=== PATIENT | male | born 1990 | race Caucasian/White ===

== ENCOUNTER 2018-06-12 21:09 | Emergency (ER) | payer BC, OTHER ==
[~2018-06-12] VITALS: Ht 175.3 cm; Wt 86.5 kg
[2018-06-12 21:13] VITALS: TEMP 37; Ht 175.3 cm; Wt 86.5 kg
[2018-06-12] MEDS ORDERED: SODIUM CHLORIDE 0.9% 1000ML 1,000 ML IV STA (21:28)
[2018-06-12] MEDS ORDERED: MoRPHine SULFATE 4 MG/ML 1 ML CARP\\VIAL IV STA (21:28)
[2018-06-12] MEDS ORDERED: ONDANSETRON INJ 2 MG/ML 2 ML VIAL IV STA (21:28)
[2018-06-12] MEDS ORDERED: OPTIRAY 320 IV PRN (21:45)
[2018-06-12 21:59] LABS: BASO % 0.6 %; BASO ABS # 0.08 K/uL (0-0.2); EOS % 2.3 %; EOS ABS # 0.28 K/uL (0-0.5); HEMATOCRIT 46.6 % (42-52); HEMOGLOBIN 16.3 g/dL (14.0-18.0); IG# 0.05 K/uL (0.00-0.02); LYMPH % 23.7 %; LYMPH ABS # 2.92 K/uL (1.2-3.4); MEAN CELL VOLUME 86.1 fL (80-100); MEAN CORPUSCULAR HEMOGLOBIN 30.1 pg (25-34); MEAN PLATELET VOLUME 10.2 fL (7.4-10.4); MONO % 10.5 %; MONO ABS # 1.29 K/uL (0.11-0.59); NEUT % 62.5 %; PLATELET COUNT 255 K/uL (130-400); RED CELL DISTRIBUTION WIDTH CV 12.4 % (11.5-14.5); WHITE BLOOD COUNT 12.32 K/uL (4.8-10.8)
[2018-06-12 22:29] LABS: ALBUMIN 4.6 gm/dl (3.4-5.0); CALCIUM 9.5 mg/dl (8.5-10.1); CREATININE 1.03 mg/dl (0.60-1.40); POTASSIUM 3.6 mmol/L (3.5-5.1); TOTAL PROTEIN 7.9 gm/dl (6.4-8.2)
[2018-06-12] MEDS ORDERED: RANITAB33 PO (22:32)
[2018-06-12] MEDS ORDERED: ONDA4TAB46 PO (22:32)
[2018-06-12] MEDS ORDERED: PRLSR20 PO (22:32)
--- NOTE | 2018-06-12 23:13 | DIAGNOSTIC IMAGING REPORT ---
CT OF THE ABDOMEN AND PELVIS WITH CONTRAST CLINICAL HISTORY: Right lower quadrant pain. Evaluate for acute appendicitis. COMPARISON STUDY: None. TECHNIQUE: Following IV administration of 115 mL of Optiray-320, axial images of the abdomen and pelvis were obtained from the lung bases to the proximal femurs. Images were reviewed in the axial, sagittal, and coronal planes. IV contrast was administered without complication. A dose lowering technique was utilized adhering to the principles of ALARA. CT DOSE: 413.36 mGy.cm FINDINGS: Lung bases are clear. No pneumatosis, free air or portal venous gas is present. The liver, spleen, adrenal glands, kidneys and pancreas are normal. There is no biliary or pancreatic ductal dilatation. There is no peripancreatic or pericholecystic infiltration. Caliber and wall thickness of small and large bowel are normal. The appendix is normal. There is no ascites or lymphadenopathy. Mild bladder wall thickening is noted. Both nephrograms are symmetric. There are no suspicious osseous lesions. IMPRESSION: 1. Normal appendix. No bowel obstruction. 2. Mild bladder wall thickening which is likely due to underdistention however could be correlated with urinalysis to exclude cystitis. Electronically signed by: Vijay Ray M.D. 06/12/2018 11:11 PM Dictated Date/Time: 06/12/2018 11:04 PM
[2018-06-12] MEDS ORDERED: ONDANSETRON HOME PACK 4MG OD TAB PO ONE (23:30)
[2018-06-13 00:02] VITALS: BP 122/70; PULSE 62; O2SAT 98
--- NOTE | 2018-06-13 00:42 | EMERGENCY ROOM VISIT NOTE ---
History Report prepared by Say: Félix Hannah Under the Supervision of: Dr. Kevin Wells M.D. First contact with patient: 21:18 Chief Complaint: ABDOMINAL PAIN Stated Complaint: ABD PAIN History of Present Illness The patient is a 28 year old male who presents to the Emergency Room with complaints of sharp and constant abdominal pain beginning 3 or 4 days ago. He states that there is no radiation of pain to the back. He notes vomiting and sweating, as well as an episode of diarrhea after drinking grape juice. He did not have a recorded fever. He denies hematuria. He reports that the pain was improved in the hot tub. He also states that he took Zofran at 15:00 today, which helped with the nausea and slightly with the pain. Source of History: patient Onset: 3 or 4 days ago Position: abdomen Quality: sharp Timing: constant Modifying Factors (Relieving): other (Zofran, hot tub) Associated Symptoms: + vomiting, + diarrhea, No back pain, No urinary symptoms Review of Systems See HPI for pertinent positives & negatives. A total of 10 systems reviewed and were otherwise negative. Past Medical & Surgical Surgical Problems: (1) History of knee surgery Family History Patient reports no known family medical history. Social History Smoking Status: Never Smoker Marital Status: single Occupation Status: employed Current/Historical Medications Scheduled Omeprazole (Prilosec), 20 MG PO DAILY Scheduled PRN Ondansetron Hcl (Zofran), 4 MG PO PRN UD PRN for Nausea Ranitidine Hcl (Zantac), 150 MG PO DAILY PRN for ACID REFLUX Allergies Coded Allergies: BEE STING (Verified Allergy, Severe, SWOLLEN, 01/12/14) Physical Exam Vital Signs Date Time Temp Pulse Resp B/P (MAP) Pulse Ox O2 Delivery O2 Flow Rate FiO2 06/13/18 00:02 62 18 122/70 98 Room Air 06/12/18 23:17 58 18 127/74 98 Room Air 06/12/18 22:45 80 17 99 Room Air 06/12/18 21:13 37.0 80 18 154/79 98 Room Air Physical Exam Constitutional: Vital signs reviewed. Eyes: Pupils are equal round reactive to light. Conjunctiva are noninjected. ENT: Pharynx is clear without erythema or exudate. Mucous membranes are moist. Neck supple without meningeal signs. Respiratory: Clear to auscultation bilaterally. Breath sounds are equal bilaterally. Cardiovascular: Regular rate and rhythm. No rubs or gallops. GI: Soft, nondistended. Right lower quadrant tenderness. Bowel sounds are present. No guarding. Musculoskeletal: No peripheral edema. No lower extremity tenderness. No CVA tenderness. Integumentary: No cyanosis. Neurological: The patient is awake and alert. No focal deficits. Psychiatric: Normal affect. Medical Decision & Procedures ER Provider Diagnostic Interpretation: Radiology results as stated below per my review and the radiologist's interpretation: Patient: MARIO HARDY Address1: [address] [place] [address] Rec: [id number] Address2: Acct ID: [id number] [facility] Zip: [place] [address] Date: 1990 Sex: M Room/Bed: Ref Phy: Codi Walsh M.D. SC: JAVED Att Phy: Report #: [id number] Kay Phy: Codi Walsh M.D. Test: APIV Admit Phy: Locum Tenens: ALINE Interpreting Phy: Vijay Ray MD Diagnosis: ABD PAIN Ordering Phy: Kevin Wells MD Service Date: 06/12/18 Admit Date: 06/12/18 MNE: [id number] CONF: DICTATED BY: Vijay Ray MD]] CC: Kevin Wells M.D. Galvin, Sharon H., M.D. Endcc: [~ rep ct add3]] CT OF THE ABDOMEN AND PELVIS WITH CONTRAST CLINICAL HISTORY: Right lower quadrant pain. Evaluate for acute appendicitis. COMPARISON STUDY: None. TECHNIQUE: Following IV administration of 115 mL of Optiray-320, axial images of the abdomen and pelvis were obtained from the lung bases to the proximal femurs. Images were reviewed in the axial, sagittal, and coronal planes. IV contrast was administered without complication. A dose lowering technique was utilized adhering to the principles of ALARA. CT DOSE: 413.36 mGy.cm FINDINGS: Lung bases are clear. No pneumatosis, free air or portal venous gas is present. The liver, spleen, adrenal glands, kidneys and pancreas are normal. There is no biliary or pancreatic ductal dilatation. There is no peripancreatic or pericholecystic infiltration. Caliber and wall thickness of small and large bowel are normal. The appendix is normal. There is no ascites or lymphadenopathy. Mild bladder wall thickening is noted. Both nephrograms are symmetric. There are no suspicious osseous lesions. IMPRESSION: 1. Normal appendix. No bowel obstruction. 2. Mild bladder wall thickening which is likely due to underdistention however could be correlated with urinalysis to exclude cystitis. Electronically signed by: Vijay Ray M.D. 06/12/2018 11:11 PM Dictated Date/Time: 06/12/2018 11:04 PM Laboratory Results 06/12/18 21:47 Red Blood Count 5.41, Mean Corpuscular Volume 86.1, Mean Corpuscular Hemoglobin 30.1, Mean Corpuscular Hemoglobin Concent 35.0, Mean Platelet Volume 10.2, Neutrophils (%) (Auto) 62.5, Lymphocytes (%) (Auto) 23.7, Monocytes (%) (Auto) 10.5, Eosinophils (%) (Auto) 2.3, Basophils (%) (Auto) 0.6, Neutrophils # (Auto ) 7.70, Lymphocytes # (Auto) 2.92, Monocytes # (Auto) 1.29, Eosinophils # (Auto ) 0.28, Basophils # (Auto) 0.08 06/12/18 21:47 Test 06/12/18 21:47 06/12/18 22:39 White Blood Count 12.32 K/uL (4.8-10.8) Red Blood Count 5.41 M/uL (4.7-6.1) Hemoglobin 16.3 g/dL (14.0-18.0) Hematocrit 46.6 % (42-52) Mean Corpuscular Volume 86.1 fL (80-100) Mean Corpuscular Hemoglobin 30.1 pg (25-34) Mean Corpuscular Hemoglobin Concent 35.0 g/dl (32-36) Platelet Count 255 K/uL (130-400) Mean Platelet Volume 10.2 fL (7.4-10.4) Neutrophils (%) (Auto) 62.5 % Lymphocytes (%) (Auto) 23.7 % Monocytes (%) (Auto) 10.5 % Eosinophils (%) (Auto) 2.3 % Basophils (%) (Auto) 0.6 % Neutrophils # (Auto) 7.70 K/uL (1.4-6.5) Lymphocytes # (Auto) 2.92 K/uL (1.2-3.4) Monocytes # (Auto) 1.29 K/uL (0.11-0.59) Eosinophils # (Auto) 0.28 K/uL (0-0.5) Basophils # (Auto) 0.08 K/uL (0-0.2) RDW Standard Deviation 39.0 fL (36.4-46.3) RDW Coefficient of Variation 12.4 % (11.5-14.5) Immature Granulocyte % (Auto) 0.4 % Immature Granulocyte # (Auto) 0.05 K/uL (0.00-0.02) Anion Gap 7.0 mmol/L (3-11) Est Creatinine Clear Calc Drug Dose 118.4 ml/min Estimated GFR () 115.7 Estimated GFR (Non- 99.8 BUN/Creatinine Ratio 16.6 (10-20) Calcium Level 9.5 mg/dl (8.5-10.1) Total Bilirubin 1.3 mg/dl (0.2-1) Direct Bilirubin 0.4 mg/dl (0-0.2) Aspartate Amino Transf (AST/SGOT) 20 U/L (15-37) Alanine Aminotransferase (ALT/SGPT) 37 U/L (12-78) Alkaline Phosphatase 67 U/L (45-117) Total Protein 7.9 gm/dl (6.4-8.2) Albumin 4.6 gm/dl (3.4-5.0) Lipase 131 U/L (73-393) Urine Color ORANGE Urine Appearance CLEAR (CLEAR) Urine pH 5.5 (4.5-7.5) Urine Specific Andrews 1.028 (1.000-1.030) Urine Protein 1+ (NEG) Urine Glucose (UA) NEG (NEG) Urine Ketones NEG (NEG) Urine Occult Blood 2+ (NEG) Urine Nitrite NEG (NEG) Urine Bilirubin NEG (NEG) Urine Urobilinogen NEG (NEG) Urine Leukocyte Esterase NEG (NEG) Urine WBC (Auto) 1-5 /hpf (0-5) Urine RBC (Auto) 0-4 /hpf (0-4) Urine Hyaline Casts (Auto) 5-10 /lpf (0-5) Urine Epithelial Cells (Auto) 5-10 /lpf (0-5) Urine Bacteria (Auto) NEG (NEG) Medications Administered Medications (Trade) Dose Ordered Sig/Tremaine Route Start Time Stop Time Status Last Admin Dose Admin Morphine Sulfate (MoRPHine SULFATE INJ) 4 mg ONE STAT IV 06/12/18 21:28 06/12/18 21:30 DC 06/12/18 21:42 4 MG Ondansetron HCl (Zofran Inj) 4 mg NOW STAT IV 06/12/18 21:28 06/12/18 21:30 DC 06/12/18 21:43 4 MG Sodium Chloride 1,000 ml @ 999 mls/hr Q1H1M STAT IV 06/12/18 21:28 06/12/18 22:28 DC 06/12/18 21:43 999 MLS/HR Ondansetron HCl (ZOFRAN ODT 4MG Home Pack) 1 homepack UD ONCE PO 06/12/18 23:30 06/12/18 23:31 DC 06/12/18 23:41 1 HOMEPACK ED Course 0: The patient was evaluated in room B5. A complete history and physical exam was performed. 8: Ordered Sodium Chloride 1000 ml @ 999 mls/hr IV, Zofran 4 mg IV, Morphine Sulfate 4 mg IV 2324: I discussed results with the patient and his mother. He verbalized agreement of the treatment plan. He was discharged home. 0: Ordered Ondansetron HCl 1 homepack PO. Medical Decision This is a 28-year-old male presents with right-sided abdominal pain. Differential diagnosis includes acute appendicitis, abscess, perforation, inflammatory bowel disease, irritable bowel syndrome, kidney stone. I did perform a limited focused review of portions of the patient's old chart on the electronic medical record. The patient has had no recent pertinent visits to this hospital. I did evaluate the patient as noted above. IV access was established. I did treat the patient with IV morphine and Zofran. He was also given normal saline IV. I did order and personally review the patient's urine analysis as described above. He had some hematuria without signs of infection. I did order and review the patient's blood work as noted in the electronic medical record. His white blood cell count is slightly elevated. I did order a CT of the abdomen and pelvis. I did review the images myself as well as the radiology report as described above. His appendix was visualized and normal. There is no acute abnormality in the abdomen or pelvis. I did reassess patient. He is feeling better at this time. I did discuss the test results with the patient and his mother. I did recommend close follow-up with his physician given we do not have a clear etiology for his pain. He was discharged with a Zofran home pack. Medication Reconcilliation Current Medication List: was personally reviewed by me Blood Pressure Screening Patient's blood pressure: Elevated blood pressure Blood pressure disposition: Referred to PCP Impression Primary Impression: Right sided abdominal pain Scribe Attestation The scribe's documentation has been prepared under my direct and personally reviewed by me in its entirety. I confirm that the note above accurately reflects all work, treatment, procedures, and medical decision making performed by me. Departure Information Dispostion Home / Self-Care Referrals No Doctor, Assigned (PCP) Forms HOME CARE DOCUMENTATION FORM, IMPORTANT VISIT INFORMATION Patient Instructions My [facility] Additional Instructions You have been examined and treated today on an emergency basis only. This is not a substitute for, or an effort to provide, complete comprehensive medical care. It is impossible to recognize and treat all injuries or illnesses in a single emergency department visit. It is therefore important that you follow up closely with your physician. Call as soon as possible for an appointment. Return for worsening symptoms or if you develop fever or any other concerning symptoms.
== END 2018-06-13 | disposition home or self-care (01) ==
LOC: C.EDB 21:11
DX: R11.2 Nausea with vomiting, unspecified (principal); R03.0 Elevated blood-pressure reading, without diagnosis of hypertension; R61 Generalized hyperhidrosis; R19.7 Diarrhea, unspecified; Z91.030 Bee allergy status

== ENCOUNTER 2018-06-24 22:33 | Emergency (ER) | payer OTHER ==
[~2018-06-24 22:33] MED LIST: ONDA4TAB46 PO; PRLSR20 PO; RANITAB33 PO
[2018-06-24 22:36] VITALS: TEMP 36.7; Ht 175.3 cm
[2018-06-24] MEDS ORDERED: KETOROLAC TROMETHAMINE 30 MG/ML VIAL IV STA (22:54)
[2018-06-24] MEDS ORDERED: ONDANSETRON INJ 2 MG/ML 2 ML VIAL IV STA (22:54)
[2018-06-24] MEDS ORDERED: SODIUM CHLORIDE 0.9% 1000ML 2,000 ML IV STA (22:54)
[2018-06-24] MEDS ORDERED: DICYCLOMINE HCL 10 MG/ML 2 ML AMP IM ONE (23:00)
[2018-06-24 23:12] LABS: BASO % 0.2 %; BASO ABS # 0.04 K/uL (0-0.2); EOS % 0.2 %; EOS ABS # 0.04 K/uL (0-0.5); HEMATOCRIT 48.6 % (42-52); HEMOGLOBIN 17.2 g/dL (14.0-18.0); LYMPH % 9.1 %; LYMPH ABS # 1.72 K/uL (1.2-3.4); MEAN CELL VOLUME 85.9 fL (80-100); MEAN CORPUSCULAR HEMOGLOBIN 30.4 pg (25-34); MEAN CORPUSCULAR HGB CONC 35.4 g/dl (32-36); MEAN PLATELET VOLUME 10.1 fL (7.4-10.4); MONO % 6.5 %; MONO ABS # 1.23 K/uL (0.11-0.59); NEUT % 83.5 %; PLATELET COUNT 293 K/uL (130-400); RED CELL DISTRIBUTION WIDTH CV 12.5 % (11.5-14.5); WHITE BLOOD COUNT 18.83 K/uL (4.8-10.8)
[2018-06-24 23:33] LABS: ALBUMIN 5.1 gm/dl (3.4-5.0); ALKALINE PHOSPHATASE 85 U/L (45-117); ALT/SGPT 40 U/L (12-78); AST/SGOT 32 U/L (15-37); BLOOD UREA NITROGEN 21 mg/dl (7-18); CALCIUM 9.5 mg/dl (8.5-10.1); CARBON DIOXIDE 24 mmol/L (21-32); CREATININE 1.28 mg/dl (0.60-1.40); GLUCOSE 112 mg/dl (70-99); LIPASE 76 U/L (73-393); POTASSIUM 4.1 mmol/L (3.5-5.1); SODIUM 136 mmol/L (136-145); TOTAL PROTEIN 8.6 gm/dl (6.4-8.2)
[2018-06-25] MEDS ORDERED: LIDOCAINE HCL 2% VISC SOLN 20 ML UDC PO STA (00:03)
[2018-06-25] MEDS ORDERED: ALUMINUM/MAGNESIUM SUSP 30 ML UDC PO STA (00:03)
[2018-06-25] MEDS ORDERED: PANTOprazole SOD 40 MG TAB PO STA (01:26)
[2018-06-25] MEDS ORDERED: SUCRALFATE 1 GM/10 ML UDC PO STA (01:26)
[2018-06-25 01:37] VITALS: BP 123/75
[2018-06-25 01:51] VITALS: PULSE 54; O2SAT 99
[2018-06-25] MEDS ORDERED: PANT40TA PO (01:53)
--- NOTE | 2018-06-25 01:53 | EMERGENCY ROOM VISIT NOTE ---
History First contact with patient: 22:45 Chief Complaint: ABDOMINAL PAIN Stated Complaint: BAD STOMACH PAIN Nursing Triage Summary: pt presents with severe abdominal pain, nausea, vomiting. States this is the third episode recently. History of Present Illness The patient is a 28 year old male who presents to the Emergency Room with complaints of epigastric pain with nausea and vomiting for the past few hours. Patient states this is his third episode within this past month. He describes the pain as discomfort, 6 out of 10 to the epigastric region. Patient denies chest pain, dyspnea, fever, chills, diarrhea, back pain, hematemesis, black stool. Patient had a CT scan last week which was unremarkable. Review of Systems An 10 system review of systems was completed with positives and pertinent negatives listed in the HPI. Past Medical/Surgical History Surgical Problems: (1) History of knee surgery Family History Patient reports no known family medical history. Social History Smoking Status: Never Smoker Marital Status: single Occupation Status: employed Current/Historical Medications No Active Prescriptions or Reported Meds Physical Exam Vital Signs Date Time Temp Pulse Resp B/P (MAP) Pulse Ox O2 Delivery O2 Flow Rate FiO2 06/25/18 00:58 52 06/25/18 00:46 54 16 124/79 98 Room Air 06/24/18 23:33 70 17 99 Room Air 06/24/18 23:27 73 06/24/18 23:23 124/74 06/24/18 22:36 36.7 86 18 123/81 97 Room Air Physical Exam VITALS: Vitals are noted on the nurse's note and reviewed by myself. Vital signs stable. GENERAL: White male vomiting, in no acute distress, nondiaphoretic, well- developed well-nourished. SKIN: The skin was without rashes, erythema, edema, or bruising. There is no tenting of the skin. Capillary reflex less than 2 seconds. HEAD: Normocephalic atraumatic. EARS: External auditory canals clear, tympanic membranes pearly croft without erythema or effusion bilaterally. EYES: Pupils equal round and reactive to light and accommodation. Conjunctivae without injection, sclerae without icterus. Extraocular movements intact. NOSE: Patent, turbinates without inflammation or discharge. MOUTH: Mucous membranes moist. Pharynx without erythema or exudate. Uvula midline. Airway patent. Tongue does not deviate. NECK: Supple without nuchal rigidity. No lymphadenopathy. No thyromegaly. Cervical spine is nontender. No JVD. HEART: Regular rate and rhythm without murmurs gallops or rubs. LUNGS: Clear to auscultation bilaterally without wheezes, rales or rhonchi. No retractions or accessory muscle use. ABDOMEN: Positive bowel sounds x 4. Normal tympanic percussion. Soft, epigastric region tender to palpation, without masses or organomegaly. Ceja sign negative. No guarding or rebound tenderness. No CVA tenderness MUSCULOSKELETAL: No muscle atrophy, erythema, or edema noted. NEURO: Patient was alert and oriented to person place and time. Normal sensation to light and sharp touch. No focal neurological deficits. Medical Decision & Procedures Laboratory Results 06/24/18 23:00 Red Blood Count 5.66, Mean Corpuscular Volume 85.9, Mean Corpuscular Hemoglobin 30.4, Mean Corpuscular Hemoglobin Concent 35.4, Mean Platelet Volume 10.1, Neutrophils (%) (Auto) 83.5, Lymphocytes (%) (Auto) 9.1, Monocytes (%) (Auto) 6.5, Eosinophils (%) (Auto) 0.2, Basophils (%) (Auto) 0.2, Neutrophils # (Auto) 15.70, Lymphocytes # (Auto) 1.72, Monocytes # (Auto) 1.23, Eosinophils # (Auto) 0.04, Basophils # (Auto) 0.04 06/24/18 23:00 Test 06/24/18 23:00 White Blood Count 18.83 K/uL (4.8-10.8) Red Blood Count 5.66 M/uL (4.7-6.1) Hemoglobin 17.2 g/dL (14.0-18.0) Hematocrit 48.6 % (42-52) Mean Corpuscular Volume 85.9 fL (80-100) Mean Corpuscular Hemoglobin 30.4 pg (25-34) Mean Corpuscular Hemoglobin Concent 35.4 g/dl (32-36) Platelet Count 293 K/uL (130-400) Mean Platelet Volume 10.1 fL (7.4-10.4) Neutrophils (%) (Auto) 83.5 % Lymphocytes (%) (Auto) 9.1 % Monocytes (%) (Auto) 6.5 % Eosinophils (%) (Auto) 0.2 % Basophils (%) (Auto) 0.2 % Neutrophils # (Auto) 15.70 K/uL (1.4-6.5) Lymphocytes # (Auto) 1.72 K/uL (1.2-3.4) Monocytes # (Auto) 1.23 K/uL (0.11-0.59) Eosinophils # (Auto) 0.04 K/uL (0-0.5) Basophils # (Auto) 0.04 K/uL (0-0.2) RDW Standard Deviation 39.0 fL (36.4-46.3) RDW Coefficient of Variation 12.5 % (11.5-14.5) Immature Granulocyte % (Auto) 0.5 % Immature Granulocyte # (Auto) 0.10 K/uL (0.00-0.02) Anion Gap 11.0 mmol/L (3-11) Estimated GFR () 88.9 Estimated GFR (Non- 76.7 BUN/Creatinine Ratio 16.4 (10-20) Calcium Level 9.5 mg/dl (8.5-10.1) Total Bilirubin 2.9 mg/dl (0.2-1) Direct Bilirubin 0.4 mg/dl (0-0.2) Aspartate Amino Transf (AST/SGOT) 32 U/L (15-37) Alanine Aminotransferase (ALT/SGPT) 40 U/L (12-78) Alkaline Phosphatase 85 U/L (45-117) Total Protein 8.6 gm/dl (6.4-8.2) Albumin 5.1 gm/dl (3.4-5.0) Lipase 76 U/L (73-393) Medications Administered Medications (Trade) Dose Ordered Sig/Tremaine Route Start Time Stop Time Status Last Admin Dose Admin Dicyclomine HCl (Bentyl Inj) 20 mg NOW ONCE IM 06/24/18 23:00 06/24/18 23:01 DC 06/24/18 23:17 20 MG Ondansetron HCl (Zofran Inj) 4 mg NOW STAT IV 06/24/18 22:54 06/24/18 22:56 DC 06/24/18 23:13 4 MG Ketorolac Tromethamine (Toradol Inj) 10 mg NOW STAT IV 06/24/18 22:54 06/24/18 22:56 DC 06/24/18 23:11 10 MG Sodium Chloride 2,000 ml @ 999 mls/hr Q2H1M STAT IV 06/24/18 22:54 06/25/18 00:54 DC 06/24/18 23:07 999 MLS/HR Lidocaine HCl (Viscous Lidocaine 2% Soln) 10 ml NOW STAT PO 06/25/18 00:03 06/25/18 00:04 DC 06/25/18 00:47 10 ML Al Hydroxide/Mg Hydroxide (Maalox Susp) 30 ml NOW STAT PO 06/25/18 00:03 06/25/18 00:04 DC 06/25/18 00:47 30 ML Pantoprazole Sodium (Protonix Tab) 40 mg NOW STAT PO 06/25/18 01:26 06/25/18 01:27 DC 06/25/18 01:35 40 MG Sucralfate (Carafate Susp) 1 gm NOW STAT PO 06/25/18 01:26 06/25/18 01:27 DC 06/25/18 01:36 1 GM ED Course Prior records/ancillary studies reviewed. Triage Nursing notes reviewed. Additional history obtained from family The patient's history was concerning for abdominal pain. Differential diagnosis: Etiologies such as reflux, appendicitis, diverticulitis, PUD, biliary pathology , UTI, pancreatitis, obstruction, mesenteric ischemia, aortic pathology, infections, inflammatory bowel disease, renal colic, as well as others were entertained. Physical examination findings: As above. ER treatment provided: Zofran, GI cocktail, IV fluids On reassessment the patient felt better. Diagnostics interpreted by me: The labs revealed leukocytosis, most likely marginalization from vomiting. Elevated bilirubin. Imaging studies: US ABDOMEN LIMITED: No evidence for cholelithiasis or cholecystitis. The liver and visualized pancreas are unremarkable sonographically. Right kidney is unremarkable. Common bile duct caliber is normal at 4 mm. Radiologist: Gonzalo Damon MD Exam and history seem consistent with epigastric pain most likely from gastritis. Patient did not have acute abdomen on exam. Patient was able to tolerate fluids and felt much better after being medicated as above. Patient was advised to do clear liquid diet today and progress as tolerated to bland diet tomorrow. Patient was advised to take medications as directed and follow- up family care in a few days or here in the ER sooner for abdominal pain, fevers , vomiting, worsening signs or symptoms or as needed. Patient was recommended outpatient endoscopy if symptoms persist as he has had recurrent episodes of epigastric pain with vomiting. By the evaluation outlined above emergent etiologies such as appendicitis, diverticulitis, PUD, biliary pathology, UTI, pancreatitis, obstruction, mesenteric ischemia, aortic pathology, infections, inflammatory bowel disease, renal colic, as well as others were deemed relatively unlikely. Patient had a CT scan last week which was unremarkable. He had no lower abdominal pain. The pt informed about the findings as listed above. All questions were answered and pleased with the treatment. Return instructions were outlined and the patient was discharged in stable condition. Outpatient prescription management: Protonix, Zofran Referral: The patient was referred back to their primary care physician for follow-up in 2 to 3 days for a recheck of the current condition. Case reviewed with my attending The chart was completed utilizing [employer] voice recognition software. Grammatical errors, random word insertions, pronoun errors, and incomplete sentences are an occassional consequence of this system due to software limitations, ambient noise, and hardware issues. Any formal questions or concerns about the content, text, or information contained within the body of this dictation should be directly addressed to the physician operations administrative assistant for clarification. Medical Decision As above Medication Reconcilliation Current Medication List: was personally reviewed by me Blood Pressure Screening Patient's blood pressure: Normal blood pressure Impression Primary Impression: Epigastric abdominal pain Additional Impressions: Vomiting Elevated bilirubin Departure Information Dispostion Home / Self-Care Condition GOOD Prescriptions No Active Prescriptions or Reported Meds Referrals Boo Mcginnis D.O. (PCP) Patient Instructions My [facility] Additional Instructions Protonix 40 m tablet daily for next 2 weeks. Take this on an empty stomach. Try Maalox or Zantac for breakthrough symptoms for reflux. Avoid large meals. Avoid acidic foods. Rest and drink plenty of fluids as tolerated. Continue current medications. Avoid strenuous activities and anything that worsens your pain. Resume normal activities once your symptoms resolve. Recommend GI referral if symptoms persist for possible endoscopy. Return to the ER immediately for worsening or persistent chest pain, abdominal pain, black or blood in your stools, vomiting, fevers, chest pains, difficulty breathing, worsening of your condition, or as needed. Follow up with your primary physician in 2-3 days for a recheck of your current condition. Recheck your bilirubin and white blood count with the family care doctor within the next week. Problem Qualifiers
[2018-06-25] MEDS ORDERED: ONDANSETRON HOME PACK 4MG OD TAB PO ONE (02:00)
--- NOTE | 2018-06-25 07:11 | DIAGNOSTIC IMAGING REPORT ---
ABDOMINAL ULTRASOUND, RIGHT UPPER QUADRANT HISTORY: Epigastric pain. COMPARISON: CT of the abdomen and pelvis June 12, 2018. FINDINGS: Liver is sonographically normal. There is no biliary ductal dilatation. Gallbladder is normal. No gallstones are identified. Pancreas is within normal limits. There is no right hydronephrosis. IMPRESSION: No significant abnormality identified within the right upper quadrant. Electronically signed by: Vijay Ray M.D. 06/25/2018 7:10 AM Dictated Date/Time: 06/25/2018 7:09 AM
== END 2018-06-25 02:05 | disposition home or self-care (01) ==
LOC: C.EDB 22:34
DX: R10.13 Epigastric pain (principal); R11.10 Vomiting, unspecified; E80.7 Disorder of bilirubin metabolism, unspecified